=== PATIENT | female | born 1990 | race Caucasian/White ===

== ENCOUNTER → 2016-08-26 19:54 | Observation (INO) ==
--- NOTE | 2016-08-26 19:12 | Discharge Summary ---
Date of Encounter: 08/26/16 Time of Encounter: 19:09 - Discharge Diagnosis (1) Constipation during in third trimester Priority: Primary Status: Acute Comments: Dulcolax rectal suppository prior to discharge (2) 34 weeks gestation of Priority: Secondary Status: Acute Comments: Reactive NST Cateogry I tracing FHTs 140 with moderate variability and 15x15 accels no decels TOCO contractions every 4 minutes 45 seconds in length palpate mild, uterus palpates soft between contractions (3) complicated by subutex maintenance, antepartum Priority: Secondary Status: Acute Comments: Being followed by [facility] (4) Vaginal inclusion cyst Priority: Primary Status: Acute Comments: Vaginal inclusion cyst visualized in posterior vaginal vault. Folllow up in office with routine care. (5) NST (non-stress test) reactive Priority: Secondary Status: Acute Comments: FHTs 135 with moderate variability and 15x15 accels no decels category I tracing TOCO contractions every 3-4 minutes; patient denies feeling contractions. - Discharge Medications Home Medications: Albuterol Sulfate [Proair HFA] 1 - 2 puff IH Q4HR PRN #1 [email or web address] 01/27/15 [Rx ] Buprenorphine HCl [Subutex] 12 mg SL DAILY 08/26/16 [History] Vit No.129/Iron/FA [ Tablet] 1 each PO DAILY 08/26/16 [History] Allergies/Adverse Reactions: Allergies azithromycin Allergy (Verified 01/02/15 07:17) Swelling of Lip/Tongue/Throat naproxen Allergy (Verified 01/02/15 07:17) Swelling of Lip/Tongue/Throat oseltamivir [From Tamiflu] Allergy (Verified 01/02/15 07:17) Swelling of Lip/Tongue/Throat Penicillins Adverse Reaction (Verified 08/26/16 19:29) See Comments pt states that she has never had it but everyone in her mothers family is allergic to it Date of admission: 08/26/16 18:43 Discharging clinician: Tamara Murphy Anticipated date of discharge: 08/26/16 - Patient Status Disposition: Home, Self-Care Condition: Good Functional capacity at discharge: independent ambulation Overall status at discharge: patient is back to baseline - Discharge Instructions Follow Up With: Sindhu Prescott DO [Partnered Physician] - - Diet and Activity Activity: resume usual activities as tolerated Diet: regular diet Hospital Course [employer] Time Attestation: Total time spent providing and/or coordinating discharge services: Time Spent: Less than 30 minutes Exam - Constitutional General appearance IM: cooperative, A&O X 3, pleasant - Respiratory Respiratory exam: Present: CTAB - Cardiovascular Cardiovascular exam IM: Present: RRR, +S1, +S2 - GI/Abdominal GI/Abdominal exam IM: normal bowel sounds, soft - Rectal Rectal exam: deferred - Additional comments: Gravid nontender uterus cervical exam per dr roach closed/thick/high/posterior - Extremities Exam Extremities exam IM: Present: normal capillary refill, normal inspection, radial pulses palpable and symetrical - Neurological Exam Neurological exam: alert, oriented X3 - VTE Reasons for not Prescribing Prophylaxis: Treatment not Indicated - Low risk for VTE
[~2016-08-26 19:54] MED LIST: Bisacodyl 10 MG RECTAL SUPPOSITORY RC ONE
== END | disposition home or self-care (01) ==
LOC: 1NENULAB
PROVIDERS: ADMIT Advanced Practice Midwife; ATTEND Obstetrics & Gynecology

== ENCOUNTER 2019-03-16 09:38 | Inpatient (IN) ==
[2019-03-16] MEDS ORDERED: Benzocaine/Menthol 56 GM AEROSOL SPRAY TP PRN (10:02)
[2019-03-16] MEDS ORDERED: Lanolin 7 G OINT...G. TP PRN (10:02)
[2019-03-16] MEDS ORDERED: Rho Immune Globulin 1,500 UNIT SYRINGE IM PRN (10:02)
[2019-03-16] MEDS ORDERED: Acetaminophen 325 MG TABLET PO PRN (10:02)
[2019-03-16] MEDS ORDERED: Measles/Mumps/Rubella Vacc 0.5 ML VIAL SQ PRN (10:02)
[2019-03-16] MEDS ORDERED: Oxytocin 20 units/ LR 1000 mL 20 UNIT/1,000 ML BAG IVC SCH (10:15)
[2019-03-16 11:46] LABS: Basophils # 0.1 K/mcL (0.0-0.2); Basophils % 0.4 %; Eosinophils # 0.1 K/mcL (0.0-0.6); Eosinophils % 0.4 %; Hematocrit 35.3 % (35.3-44.9); Hemoglobin 11.1 g/dL (11.5-15.4); Immature Granulocytes % 0.9 % (0-4); Lymphocytes # 1.5 K/mcL (0.6-4.6); Lymphocytes % 7.8 %; Mean Corpuscular HGB Conc 31.4 g/dL (31.6-35.5); Mean Corpuscular Hemoglobin 25.1 pg (28.0-33.3); Mean Corpuscular Volume 79.7 fL (83.0-100.0); Monocytes # 1.3 K/mcL (0.0-1.3); Monocytes % 6.4 %; Neutrophils # 16.5 K/mcL (1.6-8.9); Platelet Count 330 K/mcL (140-400); Red Blood Count 4.43 M/mcL (3.82-4.97); Segmented Neutrophils % 84.1 %; White Blood Count 19.6 K/mcL (4.3-11.1)
[2019-03-16 12:19] LABS: Amphetamine Screen,Urine Negative ng/mL (Cutoff=1000); Barbiturate Screen,Urine Negative ng/mL (Cutoff=200); Benzodiazepines Screen,Urine Negative ng/mL (Cutoff=200); Cannabinoid Screen,Urine Negative ng/mL (Cutoff = 50); Cocaine Screen,Urine Negative ng/mL (Cutoff= 300); Opiate Screen,Urine Negative ng/mL (Cutoff=300); Phencyclidine Screen,Urine Negative ng/mL (Cutoff=25)
[2019-03-16 12:27] LABS: Rubella IgG Antibody POSITIVE (POSITIVE)
[2019-03-16 12:33] LABS: Hepatitis B Surface Antigen Nonreactive (Nonreactive)
[2019-03-16 13:02] LABS: HIV-1&2 Antibody & p24 Ag Nonreactive (Nonreactive)
[2019-03-16] MEDS: Albuterol 2.5 MG/3 ML NEBULIZER IH PRN (17:19)
[2019-03-16] MEDS: Ibuprofen 600 MG TABLET PO PRN (19:40)
[2019-03-17] MEDS: Albuterol 2.5 MG/3 ML NEBULIZER IH PRN (05:09)
[2019-03-17] MEDS: Prenatal Vit/FA 1 EACH TABLET PO SCH (10:32)
[2019-03-17] MEDS ORDERED: Etonogestrel 68 MG IMPLANT IL ONE (16:15)
[2019-03-17] MEDS ORDERED: Lidocaine -MPF 1% 5 ML AMPUL INFILT ONE (16:15)
[2019-03-18 08:15] VITALS: BP 120/72
[2019-03-18] MEDS: Prenatal Vit/FA 1 EACH TABLET PO SCH (08:16)
[2019-03-18] MEDS: Ibuprofen 600 MG TABLET PO PRN (10:51)
== END 2019-03-18 10:55 | disposition home or self-care (01) | DRG 561 ==
LOC: 1NENULAB 09:38 → 1NENUOBS 12:41 → UNDODISIN 18:07
PROVIDERS: ADMIT Registered Nurse; ATTEND Registered Nurse

== ENCOUNTER 2020-01-09 00:27 | Observation (INO) ==
[2020-01-09 03:55] LABS: Adenovirus Not Detected (Not Detect); Bordetella Pertussis Not Detected (Not Detect); Chlamydophila pneumoniae Not Detected (Not Detect); Coronavirus 229E Not Detected (Not Detect); Coronavirus HKU1 Not Detected (Not Detect); Coronavirus NL63 Not Detected (Not Detect); Coronavirus OC43 Not Detected (Not Detect); Human Metapneumovirus Not Detected (Not Detect); Human Rhinovirus/Enterovirus Not Detected (Not Detect); Influenza A Subtype 2009 H1 Not Detected (Not Detect); Influenza B Not Detected (Not Detect); Mycoplasma pneumoniae Not Detected (Not Detect); Parainfluenza Virus 1 Not Detected (Not Detect); Parainfluenza Virus 2 Not Detected (Not Detect); Parainfluenza Virus 3 Not Detected (Not Detect); Parainfluenza Virus 4 Not Detected (Not Detect); Respiratory Syncytial Virus Not Detected (Not Detect); SARS-CoV-2 Not Detected (Not Detect)
[2020-01-09] MEDS ORDERED: Naloxone 0.4 MG/ML INJ IVP PRN (04:40)
[2020-01-09 05:17] LABS: Basophils % 0.2 %; Eosinophils % 0.1 %; Hematocrit 39.6 % (35.3-44.9); Hemoglobin 12.4 g/dL (11.5-15.4); Immature Granulocytes % 0.4 % (0-4); Lymphocytes # 0.7 K/mcL (0.6-4.6); Lymphocytes % 6.4 %; Mean Corpuscular HGB Conc 31.3 g/dL (31.6-35.5); Mean Corpuscular Hemoglobin 28.1 pg (28.0-33.3); Mean Corpuscular Volume 89.6 fL (83.0-100.0); Mean Platelet Volume 9.9 fL (9.4-12.4); Monocytes # 0.7 K/mcL (0.0-1.3); Monocytes % 6.4 %; Platelet Count 316 K/mcL (140-400); Red Blood Count 4.42 M/mcL (3.82-4.97); Red Cell Distribution Width 16.1 % (11.5-14.5); Segmented Neutrophils % 86.5 %; White Blood Count 10.4 K/mcL (4.3-11.1)
[2020-01-09 05:40] LABS: Alanine Aminotransferase 26 Units/L (7-52); Albumin 3.8 g/dL (3.5-5.7); Albumin/Globulin Ratio 1.4 (1.1-2.2); Alkaline Phosphatase 61 Units/L (34-104); Aspartate Amino Transferase 30 Units/L (13-39); BUN/Creatinine Ratio 20 (6-26); Bilirubin,Total 0.2 mg/dL (0.3-1.0); Blood Urea Nitrogen 13 mg/dL (6-20); Calcium 8.1 mg/dL (8.6-10.3); Carbon Dioxide 24 mEq/L (23-29); Chloride 106 mEq/L (98-107); Globulin 2.7 g/dL (2.4-3.5); Glucose 122 mg/dL (70-105); Magnesium 1.8 mg/dL (1.6-2.6); Osmolality,Calculated 285 (280-300); Potassium 4.1 mEq/L (3.5-5.1); Sodium 137 mEq/L (136-145); Total Protein 6.5 g/dL (6.4-8.9); eGFR For African Americans > 60 (> 60); eGFR For Non-African Americans > 60 (> 60)
[2020-01-09] MEDS ORDERED: Nicotine 21 MG PATCH.TD24 TD PRN (07:27)
[2020-01-09] MEDS ORDERED: 0.9 % Sodium Chloride 1,000 ML IVC ONE (07:49)
[2020-01-09 08:13] LABS: ABG Base Excess 0 mEq/L (-2 to 3); ABG HCO3 25 mEq/L (21-27); ABG Oxygen Saturation 96 % (95-98); ABG PCO2 40 mmHg (35-45); ABG PH 7.39 pH Units (7.32-7.45); ABG PO2 82 mmHg (85-104); ABG TCO2 26 mEq/L (20-26); Blood Gas Pressure Support 16 cm H2O
[2020-01-09] MEDS: Cefepime HCl 2,000 MG in Water for inj. (sterile) 20 ML IVP SCH ×2 (08:40→21:19)
[2020-01-09] MEDS: Clindamycin 600 MG/50 ML 600 MG/50 ML IV.SOLN IVPB SCH ×2 (08:41→18:00)
[2020-01-09 09:26] LABS: Basophils % 0.2 %; Hematocrit 35.9 % (35.3-44.9); Hemoglobin 11.5 g/dL (11.5-15.4); Immature Granulocytes % 0.3 % (0-4); Lymphocytes # 1.1 K/mcL (0.6-4.6); Lymphocytes % 11.5 %; Mean Corpuscular Hemoglobin 28.2 pg (28.0-33.3); Monocytes # 0.9 K/mcL (0.0-1.3); Monocytes % 8.7 %; Neutrophils # 7.8 K/mcL (1.6-8.9); Platelet Count 311 K/mcL (140-400); Red Blood Count 4.08 M/mcL (3.82-4.97); Red Cell Distribution Width 16.1 % (11.5-14.5); Segmented Neutrophils % 79.3 %; White Blood Count 9.8 K/mcL (4.3-11.1)
[2020-01-09 09:45] LABS: Bacteria,Urine Few per hpf (None-Few); Bilirubin,Urine Negative (Negative); Blood,Urine Small (Negative); Clarity,Urine Clear (Clear); Color,Urine Light-Yellow (Yellow); Glucose,Urine (UA) Normal (Normal); Ketones,Urine Negative (Negative); Leukocyte Esterase,Urine Negative (Negative); Mucus,Urine Few per lpf (None-Few); Nitrite,Urine Negative (Negative); PH,Urine 6.5 pH Units (5.0-8.0); Protein,Urine Negative (Neg-Trace); RBC,Urine 0-3 per hpf (0-3); Specific Gravity,Urine > 1.030 (1.010-1.025); Squamous Epithelial Cell,Urine Few per hpf (None-Few); Urobilinogen,Urine Normal (Normal); WBC,Urine 0-3 per hpf (0-3)
[2020-01-09 09:45] LABS: BUN/Creatinine Ratio 19 (6-26); Blood Urea Nitrogen 12 mg/dL (6-20); Calcium 7.9 mg/dL (8.6-10.3); Carbon Dioxide 24 mEq/L (23-29); Chloride 108 mEq/L (98-107); Glucose 107 mg/dL (70-105); Osmolality,Calculated 282 (280-300); Potassium 3.8 mEq/L (3.5-5.1); Sodium 136 mEq/L (136-145); eGFR For African Americans > 60 (> 60); eGFR For Non-African Americans > 60 (> 60)
[2020-01-09] MEDS ORDERED: methylPREDNISolone 60 MG in 0.9 % Sodium Chloride 50 ML IVPB SCH (11:00)
[2020-01-09] MEDS: Ipratropium/Albuterol Neb 3 ML IH SCH ×4 (11:33→23:31)
[2020-01-09 11:38] LABS: Creatine Kinase 600 Units/L (30-223)
[2020-01-09] MEDS: methylPREDNISolone 125 MG/2 ML VIAL IVP SCH (11:55)
[2020-01-10] MEDS: Clindamycin 600 MG/50 ML 600 MG/50 ML IV.SOLN IVPB SCH ×2 (01:00→07:49)
[2020-01-10] MEDS: Ipratropium/Albuterol Neb 3 ML IH SCH ×3 (03:27→11:55)
[2020-01-10 05:10] LABS: Basophils % 0.3 %; Eosinophils % 0.2 %; Hematocrit 35.7 % (35.3-44.9); Immature Granulocytes % 0.3 % (0-4); Lymphocytes # 1.5 K/mcL (0.6-4.6); Lymphocytes % 13.3 %; Mean Corpuscular HGB Conc 30.8 g/dL (31.6-35.5); Mean Corpuscular Hemoglobin 27.3 pg (28.0-33.3); Mean Corpuscular Volume 88.6 fL (83.0-100.0); Mean Platelet Volume 10.3 fL (9.4-12.4); Monocytes # 1.4 K/mcL (0.0-1.3); Monocytes % 12.4 %; Neutrophils # 8.5 K/mcL (1.6-8.9); Platelet Count 312 K/mcL (140-400); Red Blood Count 4.03 M/mcL (3.82-4.97); Red Cell Distribution Width 16.2 % (11.5-14.5); Segmented Neutrophils % 73.5 %; White Blood Count 11.6 K/mcL (4.3-11.1)
[2020-01-10 05:12] LABS: BUN/Creatinine Ratio 22 (6-26); Blood Urea Nitrogen 14 mg/dL (6-20); Calcium 8.7 mg/dL (8.6-10.3); Carbon Dioxide 24 mEq/L (23-29); Chloride 106 mEq/L (98-107); Glucose 111 mg/dL (70-105); Osmolality,Calculated 285 (280-300); Potassium 3.5 mEq/L (3.5-5.1); Sodium 137 mEq/L (136-145); eGFR For African Americans > 60 (> 60); eGFR For Non-African Americans > 60 (> 60)
[2020-01-10] MEDS: methylPREDNISolone 125 MG/2 ML VIAL IVP SCH (07:42)
[2020-01-10] MEDS: Cefepime HCl 2,000 MG in Water for inj. (sterile) 20 ML IVP SCH (07:46)
[2020-01-10 11:28] VITALS: BP 104/70
== END 2020-01-10 15:00 | disposition home or self-care (01) ==
LOC: CDU → 2NNU 04:39
PROVIDERS: ADMIT Family Medicine; ATTEND Family Medicine